=== PATIENT | male | born 1990 | race Caucasian/White ===

== ENCOUNTER 2017-07-25 20:38 | Emergency (ER) | payer OTHER ==
[2017-07-25] MEDS ORDERED: diphenhydrAMINE 25 MG CAP PO ONE (20:49)
[2017-07-25] MEDS ORDERED: predniSONE 20 MG TAB PO ONE (20:49)
[2017-07-25] MEDS ORDERED: FAMOTIDINE 20 MG TAB PO ONE (20:49)
--- NOTE | 2017-07-25 20:51 | EDPHY ---
H & P Time Seen by Provider: 07/25/17 20:46 HPI/ROS: CHIEF COMPLAINT: Allergic reaction HISTORY OF PRESENT ILLNESS: The patient is a 27-year-old man with history of allergies to mangos and poison mary who states that for the last 45 min he has been having a reaction. He complains of urticaria and itchiness. He had some nausea but no vomiting. No difficulty breathing. No swelling in his mouth lips or tongue. He took some Claritin at home. He has not been exposed him angles are poison mary that he knows of. This began about half an hour after eating pizza at [email or web address]. No new detergents or lotions. No medications. REVIEW OF SYSTEMS: Constitutional: denies: chills, fever, recent illness, recent injury EENTM: denies: blurred vision, double vision, nose congestion Respiratory: denies: cough, shortness of breath Cardiac: denies: chest pain, irregular heart rate, lightheadedness, palpitations Gastrointestinal/Abdominal: denies: abdominal pain, diarrhea, nausea, vomiting, blood streaked stools Genitourinary: denies: dysuria, frequency, hematuria, pain Musculoskeletal: denies: joint pain, muscle pain Skin: See HPI Neurological: denies: headache, numbness, paresthesia, tingling, dizziness, weakness Hematologic/Lymphatic: denies: blood clots, easy bleeding, easy bruising Immunologic/allergic: denies: HIV/AIDS, transplant EXAM: GENERAL: Well-appearing, well-nourished and in no acute distress. HEAD: Atraumatic, normocephalic. EYES: Pupils equal round and reactive to light, extraocular movements intact, sclera anicteric, conjunctiva are normal. ENT: No swelling, no stridor, TMs normal, nares patent, oropharynx clear without exudates. Moist mucous membranes. NECK: Normal range of motion, supple without lymphadenopathy or JVD. LUNGS: Clear, Breath sounds clear to auscultation bilaterally and equal. No wheezes rales or rhonchi. HEART: Regular rate and rhythm without murmurs, rubs or gallops. ABDOMEN: Soft, nontender, normoactive bowel sounds. No guarding, no rebound. No masses appreciated. BACK: No CVA tenderness, no spinal tenderness, step-offs or deformities EXTREMITIES: Normal range of motion, no pitting or edema. No clubbing or cyanosis. NEUROLOGICAL: Cranial nerves II through XII grossly intact. Normal speech, normal gait. 5/5 strength, normal movement in all extremities, normal sensation PSYCH: Normal mood, normal affect. SKIN: Mild diffuse urticarial rash Source: Patient, Family Exam Limitations: No limitations - Medical/Surgical History Hx Asthma: No Hx Chronic Respiratory Disease: No Hx Diabetes: No Hx Cardiac Disease: No Hx Renal Disease: No Hx Cirrhosis: No Hx Alcoholism: No Hx HIV/AIDS: No - Family History Significant Family History: No pertinent family hx - Social History Alcohol Use: None Constitutional: Initial Vital Signs Temperature (C) 36.2 C 07/25/17 20:58 Heart Rate 120 H 07/25/17 20:58 Respiratory Rate 18 07/25/17 20:58 Blood Pressure 128/79 H 07/25/17 20:58 O2 Sat (%) 93 07/25/17 20:58 O2 Delivery Mode Room Air Allergies/Adverse Reactions: No Known Allergies Allergy (Verified 07/25/17 20:50) Home Medications: Medication Instructions Recorded diphenhydrAMINE [Benadryl 50 MG 50 mg PO Q4-6PRN PRN #30 cap 07/25/17 (OTC)] predniSONE 60 mg PO DAILY #9 tab 07/25/17 Medical Decision Making ED Course/Re-evaluation: 9:00 p.m. the patient is feeling better. His heart rate is improving. 10:00 p.m. the patient's rash is almost completely gone. He states that he feels better. His heart rate is normalized. He is tolerating p.o.. We will continue to observe. 10:40 p.m. the patient is feeling completely better. His rash is resolved. She is eager to go home. We discussed continuing the Benadryl and steroids. He will follow up with his primary for allergy testing. We discussed indications for returning. Differential Diagnosis: Partial list of the Differential diagnosis considered include but were not limited to; allergic reaction, anaphylaxis and although unlikely based on the history and physical exam, I also considered asthma, infection, Muñoz Amarjit' s. I discussed these differential diagnoses and the plan with the patient as well as the usual and expected course. The patient understands that the diagnosis is provisional and that in medicine we are not always correct and that further workup is often warranted. Usual and customary warnings were given. All of the patient's questions were answered. The patient was instructed to return to the emergency department should the symptoms at all worsen or return, otherwise to followup with the physician as we discussed. - Data Points Medications Given: Discontinued Medications Diphenhydramine HCl (Benadryl) 50 mg PO EDNOW ONE Stop: 07/25/17 20:50 Last Admin: 07/25/17 20:52 Dose: 50 mg Famotidine (Pepcid) 40 mg PO EDNOW ONE Stop: 07/25/17 20:50 Last Admin: 07/25/17 20:53 Dose: 40 mg Prednisone (Prednisone) 60 mg PO EDNOW ONE Stop: 07/25/17 20:50 Last Admin: 07/25/17 20:54 Dose: 60 mg Departure - Departure Disposition: Home, Routine, Self-Care Clinical Impression: Urticaria Allergic reaction Qualifiers: Encounter type: initial encounter Qualified Code(s): T78.40XA - Allergy, unspecified, initial encounter Condition: Fair Instructions: Prednisone (By mouth), Diphenhydramine (By mouth), Urticaria (ED) Referrals: NONE *PRIMARY CARE P,. [Primary Care Provider] - As per Instructions Kitty Khan [place] [place] - As per Instructions Prescriptions: diphenhydrAMINE [Benadryl 50 MG (OTC)] 50 mg PO Q4-6PRN PRN #30 cap PRN Reason: Itching predniSONE 60 mg PO DAILY #9 tab
[2017-07-25 23:01] VITALS: BP 129/67
== END 2017-07-25 22:59 | disposition home or self-care (01) ==
LOC: CED 20:38
DX: L50.0 Allergic urticaria (principal)